=== PATIENT | male | born 1990 | race Caucasian/White ===

== ENCOUNTER 2019-07-02 18:15 | Emergency (ER) | payer MEDICAID ==
[~2019-07-02] VITALS: Ht 167.6 cm; Wt 74.8 kg
--- NOTE | 2019-07-02 18:41 | NUR ---
ED Nurse Note: Pt walked in from gym with limp c/o left foot 9/10 pain and swelling. Pt was playing basketball when he landed incorrectly on it. Respirations even and unlabored on room air. Vitals stable as documented.
[2019-07-02] MEDS ORDERED: ACETAMINOPHEN-1 EAC1 ORAL (19:22)
[2019-07-02] MEDS ORDERED: IBU800 MG PO (19:22)
--- NOTE | 2019-07-02 19:22 | Emergency Room Report ---
History of Present Illness General Chief Complaint: Lower Extremity Injury Source: Patient Present Illness HPI 29-year-old male with no significant past medical history complaining of pain and swelling left ankle after twisting it twice while playing basketball prior to arrival. Obvious deformity deformity to the left ankle noted. Rating pain to 10 without radiation. Denies any tingling numbness. Has full range of motion of toes. No neurovascular abnormality noted. Denies chest pain, shortness of breath, palpitation, head injury, dizziness and other associated symptoms. Allergies: Coded Allergies: No Known Allergies (Unverified , 07/02/19) Patient History Past Medical History: see triage record Past Surgical History: unable to obtain Pertinent Family History: none Immunizations: UTD Reviewed Nursing Documentation: PMH: Agreed; PSxH: Agreed Nursing Documentation-PMH Past Medical History: No Stated History Review of Systems All Other Systems: negative except mentioned in HPI Physical Exam Vital Signs Date Time Temp Pulse Resp B/P (MAP) Pulse Ox O2 Delivery O2 Flow Rate FiO2 07/02/19 18:23 98.8 106 16 145/87 (106) 98 Room Air Sp02 EP Interpretation: reviewed, normal General Appearance: no apparent distress, alert, GCS 15, non-toxic Head: normocephalic, atraumatic Eyes: bilateral eye normal inspection, bilateral eye PERRL ENT: hearing grossly normal, normal pharynx, no angioedema, normal voice Neck: full range of motion, supple/symm/no masses Respiratory: chest non-tender, lungs clear, normal breath sounds, no wheezing, speaking full sentences Cardiovascular #1: regular rate, rhythm, no edema, no murmur Cardiovascular #2: 2+ dorsalis pedis (R), 2+ dorsalis pedis (L) Gastrointestinal: normal bowel sounds, non tender, soft, non-distended, no guarding, no rebound Genitourinary: no CVA tenderness Musculoskeletal: back normal, no calf tenderness, pelvis stable, tender - Left lateral malleolus, swelling Neurologic: alert, motor strength/tone normal, oriented x3, sensory intact, responsive, speech normal Psychiatric: judgement/insight normal, memory normal, mood/affect normal, no suicidal/homicidal ideation Skin: no rash Lymphatic: no adenopathy Procedures Splinting Splinting : Consent: Verbal Location: Left ankle Hand-Made Type: plaster Splint: poserior short Pre-Proc Neuro Vasc Exam: normal Post-Proc Neuro Vasc Exam: normal Patient Tolerated: Well Complications: None Medical Decision Making PA Attestation All my diagnosis and treatment plans were reviewed ad discussed with my supervising physician Dr. Dupont Diagnostic Impression: Primary Impression: Ankle fracture ER Course 29-year-old male with no significant past medical history complaining of pain and swelling left ankle after twisting it twice while playing basketball prior to arrival. Obvious deformity deformity to the left ankle noted. Rating pain to 10 without radiation. Denies any tingling numbness. Has full range of motion of toes. No neurovascular abnormality noted. Denies chest pain, shortness of breath, palpitation, head injury, dizziness and other associated symptoms. Ddx considered but are not limited to: ankle sprain, ankle strain, ankle fracture, ankle contusion Vital signs: are WNL, pt. is afebrile H&PE are most consistent with: Left ankle fracture ORDERS: ankle x-ray, ibuprofen, tylenol 3 ED INTERVENTIONS: Splint was applied, crutches provided DISCHARGE: At this time pt. is stable for d/c to home. Will provide printed patient care instructions, and any necessary prescriptions. Care plan and follow up instructions have been discussed with the patient prior to discharge. Patient to follow-up with primary care provider for referral to performance specialist, take medication as directed, avoid strenuous physical activity, if worsening symptoms, tightening and swelling underneath splint return to the emergency room. Also take splint off prior to coming. Other X-Ray Diagnostic Results Other X-Ray Diagnostic Results : X-Ray ordered: left ankle # of Views/Limited Vs Complete: 3 View Indication: Pain EP Interpretation: Yes PA Xray: Interpretation reviewed, by supervising MD, and agrees with findings. Interpretation: other - fx left ankle Impression: Other - fx left ankle Electronically Signed by: Neo Rosas PA-C Last Vital Signs Date Time Temp Pulse Resp B/P (MAP) Pulse Ox O2 Delivery O2 Flow Rate FiO2 07/02/19 18:23 98.8 106 16 145/87 (106) 98 Room Air Disposition: HOME, SELF-CARE Condition: Stable Scripts Ibuprofen (Ibu) 800 Mg Tablet 800 MG PO TID, #30 TAB Prov: Neo Wing 1/29/20 Acetaminophen With Codeine (T#3) (TYLENOL #3 TAB*) Y Tab 1 TAB ORAL Q12HR PRN for For Pain for 3 Days, #10 TAB Prov: Neo Wing 07/02/19 Patient Instructions: Ankle Fracture, [id number] Additional Instructions: Take medication as directed, follow-up with your primary care provider, you need to be seen by performance specialist, if worsening symptoms return to the emergency room Neo Wing Jul 02, 2019 19:22
--- NOTE | 2019-07-02 19:28 | NUR ---
ED Nurse Note: Report given to BAY Barboza. Plan of care endorsed.
--- NOTE | 2019-07-02 19:35 | NUR ---
ER DISCHARGE NOTE: Patient is cleared to be discharged per ERMD, pt is aox4, on room air, with stable vital signs. pt was given dc and prescription instructions, pt was able to verbalize understanding, pt id band removed without complications. pt is able to ambulate with steady gait. pt took all belongings. PT GIVEN CRUTCHES WITH CRUTCH TRAINING AND RETURN DEMONSTRATES PROPER USE.
[2019-07-02 19:45] VITALS: BP 145/87
--- NOTE | 2019-07-03 09:51 | Diagnostic Imaging Report ---
Indication: Pain, trauma, status post fall Technique: 3 views of the left ankle Comparison: none Findings: No acute fractures. No dislocations. There is marked soft tissue swelling overlying the lateral malleolus. Impression: Soft tissue swelling. No acute bony trauma
== END 2019-07-02 19:45 | disposition home or self-care (01) ==
LOC: EMR 18:38
DX: S82.892A Other fracture of left lower leg, initial encounter for closed fracture (principal); Y93.67 Activity, basketball; Y92.9 Unspecified place or not applicable
CPT/HCPCS: 29515; 73610; Z7502; 99283